=== PATIENT | female | born 1985 | race American Indian/Alaskan Native ===

== ENCOUNTER 2019-02-04 01:29 | Emergency (ER) | payer MEDICARE ==
[2019-02-04 01:36] VITALS: BP 123/91
[2019-02-04] MEDS ORDERED: TORADOL IV ONE (03:36)
[2019-02-04] MEDS ORDERED: BENADRYL IV ONE (03:36)
[2019-02-04] MEDS ORDERED: REGLAN IV ONE (03:36)
--- NOTE | 2019-02-04 03:41 | Emergency Department Report ---
ED Headache HPI - General Chief Complaint: Headache Stated Complaint: SEVERE MIGRAINE/CLOUDY VISION/SOB Time Seen by Provider: 02/04/19 03:35 - History of Present Illness Initial Comments: 33-year-old -Citizen Of [place] female presents to the emergency room complaining of a headache or vision and nausea 2 days. Patient denies any vomiting but does admit to blurry vision. Patient reports that when she coughs it makes her headache worse. Patient reports she is taking ibuprofen and Tylenol without resolution of her headache. Patient denies any trauma to her head patient has a past medical history of high cholesterol and had a partial hysterectomy. Timing/Duration: other (2 days) Quality: severe Recent Head Trauma: no recent headache/trauma Associated Symptoms: nausea/vomiting (no vomiting) ED Review of Systems ROS: Stated complaint: SEVERE MIGRAINE/CLOUDY VISION/SOB Other details as noted in HPI Comment: All other systems reviewed and negative Gastrointestinal: nausea. denies: vomiting Neurological: headache ED Past Medical Hx - Past Medical History Previous Medical History?: Yes Additional medical history: High cholesterol - Surgical History Past Surgical History?: Yes Additional Surgical History: Partial Hysterectomy - Social History Smoking Status: Current Every Day Smoker Substance Use Type: Alcohol, Marijuana ED Physical Exam - General Limitations: No Limitations General appearance: alert, in no apparent distress - Head Head exam: Present: atraumatic, normocephalic - Eye Eye exam: Present: normal appearance - ENT ENT exam: Present: mucous membranes moist - Extremities Exam Extremities exam: Present: normal inspection, full ROM - Back Exam Back exam: Present: normal inspection, full ROM - Neurological Exam Neurological exam: Present: alert, oriented X3 - Expanded Neurological Exam Expanded Cranial nerves: EOM's Intact: Normal, Gag Reflex: Normal, Tongue Deviation: Normal, Nystagmus: Normal, Facial Sensation: Normal, Facial Palsy with Forehead Movement: Normal, Facial Palsy without Forehead Movement: Normal Cerebellar function: Finger to Nose: Normal, Heel to Vincent: Normal, Romberg: Normal Upper motor neuron: Binu Neglect: Normal, Pronator Drift: Normal, Babinski Sign: Normal, Sensory Extinction: Normal Sensory exam: Upper Extremity Light Touch: Normal, Upper Extremity Pin Prick: Normal, Upper Extremity Temperature: Normal, UE 2 Point Discrimination: Normal, Lower Extremity Light Touch: Normal, Lower Extremity Pin Prick: Normal, Lower Extremity Temperature: Normal, LE 2 Point Discrimination: Normal Motor strength exam: RUE: 4, LUE: 4, RLE: 4, LLE: 4 Best Eye Response (Veena): (4) open spontaneously Best Motor Response (Holbrook): (6) obeys commands Best Verbal Response (Holbrook): (5) oriented Holbrook Total: 15 - Psychiatric Psychiatric exam: Present: normal affect, normal mood - Skin Skin exam: Present: warm, dry, intact, normal color. Absent: rash ED Course Vital Signs 02/04/19 01:34 Temperature 97.8 F Pulse Rate 72 Respiratory 14 Rate Blood Pressure 123/91 O2 Sat by Pulse 99 Oximetry - Reevaluation(s) Reevaluation #1: 02/04/19 04:07 headache has resolved ED Medical Decision Making - Medical Decision Making 33-year-old -Citizen Of [place] female presents to the emergency room complaining of a headache or vision and nausea 2 days. Patient denies any vomiting but does admit to blurry vision. Patient reports that when she coughs it makes her headache worse. Patient reports she is taking ibuprofen and Tylenol without resolution of her headache. Patient denies any trauma to her head patient has a past medical history of high cholesterol and had a partial hysterectomy. IV insertion, Benadryl 25 mg I V, Reglan 10 mg IV and Toradol 15 mg IV for headache management. Patient will be referred to a neurologist for further evaluation. Critical care attestation.: If time is entered above; I have spent that time in minutes in the direct care of this critically ill patient, excluding procedure time. ED Disposition Clinical Impression: Headache Disposition: DC-01 TO HOME OR SELFCARE Is pt being admited?: No Does the pt Need Aspirin: No Condition: Stable Instructions: Acute Headache (ED) Additional Instructions: Take Tylenol and/or Motrin as needed for headaches. Referrals: PRIMARY CARE, [Primary Care Provider] - 3-5 Days Forms: Work/School Release Form(ED)
== END 2019-02-04 04:12 | disposition home or self-care (01) ==
LOC: ED 01:29
DX: R51 Headache (principal); R11.0 Nausea; H53.8 Other visual disturbances; R05 Cough; E78.00 Pure hypercholesterolemia, unspecified; F17.200 Nicotine dependence, unspecified, uncomplicated; F12.10 Cannabis abuse, uncomplicated; Z90.710 Acquired absence of both cervix and uterus; Z88.0 Allergy status to penicillin
CPT/HCPCS: 96374; 96375; 99282; J1200; J1885; J2765